=== PATIENT | female | born 1980 | race Caucasian/White ===

== ENCOUNTER 2017-01-24 00:24 | Outpatient (CLI) | payer SELFPAY | END 2017-01-24 00:25 | disposition EMS.NT | LOC: EMS 00:24 | PROVIDERS: ATTEND Surgery | DX: R46.4 Slowness and poor responsiveness (principal) ==

== ENCOUNTER 2017-03-27 17:46 | Emergency (ER) | payer SELFPAY ==
[2017-03-27] MEDS ORDERED: HYDROcod/ACETAM 5/325 MG TABLET PO STA (18:14)
--- NOTE | 2017-03-27 18:17 | ED Physician Documentation ---
PD HPI CHEST PAIN - Stated complaint Stated Complaint: L BREAST/RIB PAIN - Chief complaint Chief Complaint: Resp - History obtained from History obtained from: Patient - History of Present Illness Timing - onset: Other (Little over week ago her dog pushed her into the railing on her porch and she suffered a left chest wall injury and has persistent pain there with some shortness of breath. She had a cough that started before that by several weeks and is improving but has changed color recently with some green sputum. 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: section, Dilation and currettage - Present Medications Home Medications: Ambulatory Orders Medication Instructions Recorded Confirmed HYDROcod/ACETAM 5/325 [[place] 5/325] 1 - 2 ea PO Q6H PRN #15 tablet 03/27/17 - Allergies Allergies/Adverse Reactions: Allergies Allergy/AdvReac Type Severity Reaction Status Date / Time bupropion HCl * Allergy Intermediate Rash Verified 03/27/17 17:59 [From Wellbutrin] - Social History Does the pt smoke?: Yes Smoking Status: Current every day smoker Does the pt drink ETOH?: Yes Does the pt have substance abuse?: No - Immunizations Immunizations are current?: Yes - POLST Patient has POLST: No PD ED PE NORMAL - Vitals Vital signs reviewed: Yes - General General: Alert and oriented X 3, No acute distress - HEENT HEENT: PERRL, EOMI - Neck Neck: Supple, no meningeal sign, No bony TTP - Cardiac Cardiac: RRR, No murmur, Other (Chest wall examination done with Noa Han ED lamination technician present, she has a bruise over the lateral left breast which is tender and some underlying rib tenderness over the lateral ribs, the mid ribs. There is no chest wall deformity.) - Respiratory Respiratory: No respiratory distress, Clear bilaterally - Abdomen Abdomen: Soft, Non tender - Extremities Extremities: No edema, No calf tenderness / cord - Neuro Neuro: Alert and oriented X 3 Eye Opening: Spontaneous Motor: Obeys Commands Verbal: Oriented GCS Score: 15 - Psych Psych: Normal mood, Normal affect Results - Vitals Vitals: Vital Signs - 24 hr 03/27/17 17:56 Temperature 36.9 C Heart Rate 119 H Respiratory 18 Rate Blood Pressure 160/107 H O2 Saturation 100 Oxygen O2 Source Room air - EKG (time done) 1805 Rate: Rate (enter#) (110) Rhythm: Sinus tachycardia Cassandra: Normal Intervals: Normal [place] QRS: Normal Ischemia: Normal ST segments Computer interpretation: Agree with computer - Rads (name of study) L ribs and chest Radiology: EMP read contemporaneously (NAD) Departure - Departure Disposition: 01 Home, Self Care Clinical Impression: Contusion of left chest wall Qualifiers: Encounter type: initial encounter Qualified Code(s): S20.212A - Contusion of left front wall of thorax, initial encounter Condition: Good Record reviewed to determine appropriate education?: Yes Instructions: ED Contusion Chest Wall Prescriptions: HYDROcod/ACETAM 5/325 [[place] 5/325] 1 - 2 ea PO Q6H PRN #15 tablet PRN Reason: Pain Comments: Call your doctor to arrange a follow-up appointment, make the next available appointment. In the interim, return anytime if worse or if new symptoms develop. Do not drink or drive while taking narcotic pain medication. Note that many narcotic pain relievers also contain Tylenol/acetaminophen. Please ensure that your total dose of acetaminophen from all sources does not exceed 3 g (3000 mg) per day. You may get constipated while on this medication. Take a stool softener such as Colace twice a day while you are on it. Also add an [id number] laxative such as senna or MiraLAX on any day that you do not have a bowel movement. If you received a narcotic pain medication or sedative while in the emergency department, do not drive for the next 24 hours. Your blood pressure was elevated today on check into the emergency department. This does not mean that you have hypertension, it is a common phenomenon to come to the emergency department and have elevated blood pressure. I recommend that you see your primary care physician within the week to have it rechecked when you are feeling better.
[2017-03-27] MEDS ORDERED: HYDROcod/ACETAM 5/325 MG TABLET ONE (18:24)
--- NOTE | 2017-03-27 18:48 | XRAY Preliminary Report ---
Exam: XR RIBS W/PA CHEST LT IMPRESSION: Normal chest and rib radiography. [facility] SITE ID: [id number]
--- NOTE | 2017-03-27 18:55 | XRAY Report ---
EXAM: LEFT RIB RADIOGRAPHY EXAM DATE: 03/27/2017 06:32 PM. CLINICAL HISTORY: Left anterior mid chest wall pain after fall. Cough. COMPARISON: None. TECHNIQUE: 1 view of the chest and 2 views of the ribs. FINDINGS: Bones: Normal. No fracture or bone lesion. A marker was placed in the area of concern and this corres ponds to the costocartilage junctions of the left sixth and seventh ribs. Lungs: No focal opacities. No pneumothorax. No pleural effusions. Mediastinum: Heart and mediastinal contours are unremarkable. Other: None. IMPRESSION: Normal chest and rib radiography. [facility] Referring Provider Line: [phone] SITE ID: [id number]
[2017-03-27 19:01] VITALS: BP 136/106
== END 2017-03-27 19:03 | disposition home or self-care (01) ==
LOC: ED 17:46
DX: S20.212A Contusion of left front wall of thorax, initial encounter (principal); W01.198A Fall on same level from slipping, tripping and stumbling with subsequent striking against other object, initial encounter; Y92.018 Other place in single-family (private) house as the place of occurrence of the external cause; R03.0 Elevated blood-pressure reading, without diagnosis of hypertension; F17.200 Nicotine dependence, unspecified, uncomplicated
CPT/HCPCS: 71101; 93005; 99283; A9270

== ENCOUNTER 2017-08-08 06:26 | Emergency (ER) | payer MEDICAID ==
[2017-08-08 06:33] VITALS: BP 148/88
[2017-08-08] MEDS ORDERED: KETOROLAC 60 MG/2 ML VIAL IM STA (07:25)
[2017-08-08] MEDS ORDERED: DEXAMETHASONE 10 MG/ML VIAL PO STA (07:25)
--- NOTE | 2017-08-08 07:29 | ED Physician Documentation ---
PD HPI URI - Stated complaint Stated Complaint: RIB PX - Chief complaint Chief Complaint: Resp - History obtained from History obtained from: Patient - History of Present Illness Timing - onset: How many months ago (5) Timing details: Gradual onset, Still present, Waxing and waning Associated symptoms: Nasal congestion, Rhinorrhea, Productive cough, Chest pain , Dyspnea Improves by: Rest Worsened by: Activity Similar symptoms before: Diagnosis (bronchitis) Recently seen: Not recently seen - Additional information Additional information: 36-year-old female with a history of cough since December of last year has had symptoms waxing and waning and has developed pain in her left lower chest wall. This is a similar area to where she contused her chest wall in March. She states that over the past 5 days this pain has become intolerable and she is been brought to tears daily. She is coughing up yellow phlegm she has some shortness of breath and a rattle when she takes a deep breath. Review of Systems Constitutional: denies: Fever, Chills Eyes: denies: Decreased vision Ears: denies: Ear pain Nose: reports: Rhinorrhea / runny nose, Congestion Throat: denies: Sore throat Cardiac: reports: Chest pain / pressure. 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 and currettage - Present Medications Home Medications: Ambulatory Orders Medication Instructions Recorded Confirmed HYDROcod/ACETAM 5/325 [Lambert 5/325] 1 - 2 ea PO Q6H PRN #15 tablet 03/27/17 Lidocaine Patch 5% [Lidoderm Patch] 1 each TOP DAILY #10 patch 03/27/17 Azithromycin [Zithromax] 250 mg PO DAILY #6 tablet 08/08/17 Benzonatate [Tessalon] 100 - 200 mg PO TID PRN #20 capsule 08/08/17 HYDROcod/ACETAM 5/325 [Lambert 5/325] 1 - 2 ea PO Q6H PRN #15 tablet 08/08/17 - Allergies Allergies/Adverse Reactions: Allergies Allergy/AdvReac Type Severity Reaction Status Date / Time bupropion HCl * Allergy Intermediate Rash Verified 03/27/17 17:59 [From Wellbutrin] - Social History Does the pt smoke?: Yes Smoking Status: Current every day smoker Does the pt drink ETOH?: Yes Does the pt have substance abuse?: No - Immunizations Immunizations are current?: Yes - POLST Patient has POLST: No PD ED PE NORMAL - Vitals Vital signs reviewed: Yes (Hypertensive) - General General: Alert and oriented X 3, Well developed/nourished, Other (The patient is in tears and appears to winch with breath taking) - HEENT HEENT: Atraumatic, PERRL, EOMI, Ears normal, Moist mucous membranes, Pharynx benign, Dentition benign - Neck Neck: Supple, no meningeal sign - Cardiac Cardiac: RRR, No murmur - Respiratory Respiratory: No respiratory distress, Clear bilaterally, Other (There is specific point tenderness to the rib under the left breast.) - Abdomen Abdomen: Soft, Non tender - Back Back: No CVA TTP, No spinal TTP - Derm Derm: Normal color, Warm and dry, No rash - Extremities Extremities: No deformity, No edema - Neuro Neuro: No motor deficit, No sensory deficit Eye Opening: Spontaneous Motor: Obeys Commands Verbal: Oriented GCS Score: 15 - Psych Psych: Other (Mood is painful the affect is with fair range) Results - Vitals Vitals: Vital Signs - 24 hr 08/08/17 06:30 Temperature 36.3 C L Heart Rate 73 Respiratory 18 Rate Blood Pressure 148/88 H O2 Saturation 100 Oxygen O2 Source Room air - Rads (name of study) 2 view chest Radiology: Prelim report reviewed (Impression: Normal two-view chest radiography.), EMP read indepedently, See rad report PD MEDICAL DECISION MAKING - ED course Complexity details: reviewed old records, reviewed results, re-evaluated patient , considered differential, d/w patient ED course: 36-year-old female with a cough for months has pain in an area where she has prior to prior chest wall contusion. She is coughing up yellow phlegm this is been persistent for months and antibiotic therapy is indicated. She is administered 10 mg of dexamethasone and 30 mg of Toradol IM for acute relief and we will place her on some cough suppressant as well as antibiotic and pain medication. Departure - Departure Disposition: 01 Home, Self Care Clinical Impression: Bronchitis, Left-sided chest wall pain Condition: Stable Instructions: ED Contusion Chest Wall, ED Upper Resp Infec Abx Tx Follow-Up: [facility] [Provider Group] Prescriptions: Azithromycin [Zithromax] 250 mg PO DAILY #6 tablet Benzonatate [Tessalon] 100 - 200 mg PO TID PRN #20 capsule PRN Reason: Cough HYDROcod/ACETAM 5/325 [Lambert 5/325] 1 - 2 ea PO Q6H PRN #15 tablet PRN Reason: Pain
[2017-08-08] MEDS ORDERED: CHERRY SYRUP 10 ML UDC PO ONE (07:42)
--- NOTE | 2017-08-08 07:51 | XRAY Preliminary Report ---
Exam: XR CHEST 2 VIEW X-RAY IMPRESSION: Normal 2-view chest radiography. [facility] SITE ID: [id number]
--- NOTE | 2017-08-08 07:51 | XRAY Report ---
EXAM: CHEST RADIOGRAPHY EXAM DATE: 08/08/2017 07:41 AM. CLINICAL HISTORY: Left lower chest pain. COMPARISON: None. TECHNIQUE: 2 views. FINDINGS: Lungs/Pleura: No focal opacities evident. No pleural effusion. No pneumothorax. Normal volumes. Mediastinum: Heart and mediastinal contours are unremarkable. Other: None. IMPRESSION: Normal 2-view chest radiography. [facility] Referring Provider Line: [phone] SITE ID: [id number]
== END 2017-08-08 08:11 | disposition home or self-care (01) ==
LOC: ED 06:26
DX: J40 Bronchitis, not specified as acute or chronic (principal); R07.89 Other chest pain; F17.200 Nicotine dependence, unspecified, uncomplicated
CPT/HCPCS: 71046; 96372; 99283; A9270

== ENCOUNTER 2018-05-31 08:53 | Emergency (ER) | payer MEDICAID ==
[2018-05-31 09:07] VITALS: BP 147/107
[2018-05-31] MEDS ORDERED: oxyCODONE 5 MG TABLET PO STA (09:32)
[2018-05-31] MEDS ORDERED: DEXAMETHASONE 10 MG/ML VIAL PO STA (09:32)
--- NOTE | 2018-05-31 09:36 | ED Physician Documentation ---
History of Present Illness - Stated complaint Stated Complaint: FOOT PX - Chief complaint Chief Complaint: Ext Problem - History obtained from History obtained from: Patient - History of Present Illness Timing: How many days ago (several) Pain level max: 10 Pain level now: 5 - Additonal information Additional information: 37-year-old female presents to the emergency department with left foot pain. This been ongoing for the past several days. Went to the walk-in clinic in [place], normal foot x-ray 2 days ago. States pain is increasing. Was placed in a cam walking boot. She has an appointment with podiatry in 2 weeks. Does not recall any injury. She states she is normally very active. States the n aproxen is not helping with her pain. Worse with walking. 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, Dilation and currettage - Present Medications Home Medications: Ambulatory Orders Medication Instructions Recorded Confirmed Naproxen 500 mg PO BID PRN 05/31/18 05/31/18 Oxycodone HCl/Acetaminophen 1 - 2 each PO Q6H PRN #14 tablet 05/31/18 [Percocet 5-325 mg Tablet] - Allergies Allergies/Adverse Reactions: Allergies Allergy/AdvReac Type Severity Reaction Status Date / Time bupropion HCl * Allergy Intermediate Rash Verified 03/27/17 17:59 [From Wellbutrin] - Social History Does the pt smoke?: Yes Smoking Status: Current every day smoker Does the pt drink ETOH?: Yes Does the pt have substance abuse?: No - Immunizations Immunizations are current?: Yes - POLST Patient has POLST: No PD ED PE NORMAL - Vitals Vital signs reviewed: Yes - General General: Alert and oriented X 3, No acute distress - HEENT HEENT: Moist mucous membranes - Derm Derm: Warm and dry - Extremities Extremities: Other (L foot - TTP near the 4th MTP joint, minimal erythema. NVI. Pain with ROM of the 4th and 5th digits.) - Neuro Neuro: Alert and oriented X 3 Results - Vitals Vitals: Vital Signs - 24 hr 05/31/18 09:02 Temperature 36.7 C Heart Rate 102 H Respiratory 14 Rate Blood Pressure 147/107 H O2 Saturation 100 Oxygen O2 Source Room air PD MEDICAL DECISION MAKING - ED course Complexity details: reviewed results, re-evaluated patient, considered differential, d/w patient ED course: 37-year-old female presents to the emergency department with left foot pain. Unclear etiology. Possible plantar fasciitis? Will transition her from a cam walking boot into a postoperative shoe and placed on pain medication for home. Given a dose of steroids here. Will follow up with podiatry. Patient counseled regarding signs and symptoms for which I believe and urgent re-evaluation would be necessary. Patient with good understanding of and agreement to plan and is comfortable going home at this time This document was made in part using voice recognition software. While efforts are made to proofread this document, sound alike and grammatical errors may occur. Departure - Departure Disposition: 01 Home, Self Care Clinical Impression: Left foot pain, Plantar fasciitis of left foot Condition: Good Instructions: ED Acute Pain [facility], ED Plantar Fasciitis Follow-Up: your,doctor in 1 week [Other] Prescriptions: Oxycodone HCl/Acetaminophen [Percocet 5-325 mg Tablet] 1 - 2 each PO Q6H PRN #14 tablet PRN Reason: pain Comments: Return if you worsen. Use the postoperative shoe as needed. Continue to gently stretching the foot as well. This should improve over the next week or so. Do not drink alcohol or drive while on narcotic pain medicine. Note that many narcotic pain relievers also contain tylenol/acetaminophen. Please ensure that your total dose of acetaminophen from all sources does not exceed 3 grams (3000mg) per day. You may constipated on this medication, take a stool softener such as "Colace" twice a day while you are on it. Also recommend a [id number] laxative such as senna or MiraLAX any day that you do not have a bowel movement. If you received narcotic pain medication in the emergency department, do not drive or operate machinery for the next 24 hours. Discharge Date/Time: 05/31/18 09:53
[2018-05-31] MEDS ORDERED: CHERRY SYRUP 10 ML UDC PO ONE (09:45)
== END 2018-05-31 09:53 | disposition home or self-care (01) ==
LOC: ED 08:53
DX: M72.2 Plantar fascial fibromatosis (principal); F17.200 Nicotine dependence, unspecified, uncomplicated
CPT/HCPCS: 99283; A9270

== ENCOUNTER 2018-06-17 13:30 | Outpatient (CLI) | payer MEDICAID ==
[2018-06-17 14:35] LABS: BASOPHILS # (AUTO) 0.1 10^3/uL (0.0-0.1); EOSINOPHILS # (AUTO) 0.1 10^3/uL (0.0-0.7); EOSINOPHILS % (AUTO) 1.3 %; LYMPHOCYTES # (AUTO) 2.2 10^3/uL (1.5-3.5); LYMPHOCYTES % (AUTO) 20.7 %; MEAN CORPUSCULAR HEMOGLOBIN 30.4 pg (27.0-31.0); MEAN CORPUSCULAR HGB CONC 34.3 g/dL (32.0-36.0); MEAN CORPUSCULAR VOLUME 88.6 fL (81.0-99.0); MEAN PLATELET VOLUME 7.6 fL (7.9-10.8); MONOCYTES # (AUTO) 0.9 10^3/uL (0.0-1.0); NEUTROPHILS # (AUTO) 7.4 10^3/uL (1.5-6.6); PLT - PLATELET COUNT 500 10^3/uL (130-450); RED BLOOD COUNT 3.95 10^6/uL (4.20-5.40); RED CELL DISTRIBUTION WIDTH 13.7 % (12.0-15.0); WHITE BLOOD COUNT 10.7 x10^3/uL (4.8-10.8)
[2018-06-17 14:54] LABS: BUN - BLOOD UREA NITROGEN 16 mg/dL (6-20); CALCIUM 9.2 mg/dL (8.5-10.3); CARBON DIOXIDE - CO2 28 mmol/L (21-32); CHLORIDE 99 mmol/L (101-111); CREATININE 0.5 mg/dL (0.4-1.0); GFR - MDRD 139 (>89); GLUCOSE 98 mg/dL (70-100); SODIUM 135 mmol/L (135-145); VANCOMYCIN,TROUGH 17.9 ug/mL (10.0-20.0)
== END 2018-06-17 23:59 | disposition home or self-care (01) ==
LOC: LAB.R 13:30
PROVIDERS: ATTEND Internal Medicine Infectious Disease
DX: L03.119 Cellulitis of unspecified part of limb (principal)
CPT/HCPCS: 80048; 80202; 85025